=== PATIENT | female | born 1955 | race Caucasian/White ===

== ENCOUNTER → 2025-06-05 | Outpatient (CLI) | payer OTHER, SELFPAY ==
--- NOTE | 2025-06-05 10:40 | XR_ITS ---
Examination: Bilateral AP knees standing single view TECHNIQUE: AP bilateral knees standing single view Date and time: June 05, 2025 1056 hours INDICATIONS: Bilateral knee pain after walking 6 days ago FINDINGS: Prominent osteopenia Moderate to advanced narrowing medial lateral joint spaces bilaterally, most prominent medial joint space left knee No fracture IMPRESSION: Moderate to advanced narrowing medial lateral joint spaces bilaterally
[2025-06-05 12:20] LABS: Basophils # (Auto) 0.0 Thou/mm3 (0.0-0.2); Basophils % (Auto) 0 % (0-2.5); Eosinophils # (Auto) 0.0 Thou/mm3 (0.0-0.5); Eosinophils % (Auto) 0 % (0-10); Hematocrit 40.2 % (36.0-46.0); Hemoglobin 14.1 g/dL (12.0-16.0); Immature Granulocytes Auto 0.02 Thou/mm3 (0.00-0.00); Lymphocytes # (Auto) 1.5 Thou/mm3 (1.0-4.8); Lymphocytes % (Auto) 21 % (10-50); Mean Corpuscular HGB Conc 35.1 g/dl (31.0-37.0); Mean Corpuscular Hemoglobin 30.4 pg (25.0-35.0); Mean Corpuscular Volume 87 fL (80-100); Monocytes # (Auto) 0.7 Thou/mm3 (0.0-0.8); Monocytes % (Auto) 10 % (0-12); Neutrophils # (Auto) 4.8 Thou/mm3 (1.8-7.7); Neutrophils % (Auto) 68 % (37-80); Nucleated Red Blood Cell # 0.00 Thou/mm3 (0.00-0.00); Nucleated Red Blood Cell % 0 /100 WBC (0); Platelet Count 295 Thou/mm3 (140-440); RDW Standard Deviation 39.2 fL (36.4-46.3); Red Blood Count 4.64 Miln/mm3 (4.00-5.20); White Blood Count 7.0 Thou/mm3 (3.6-11.0)
[2025-06-05 12:30] LABS: Glucose Estimated Average 108 mg/dL (80-131); Hemoglobin A1C 5.4 % Hgb (4.8-6.0)
[2025-06-05 12:32] LABS: B-Type Natriuretic Peptide < 20 pg/mL (0-100)
[2025-06-05 12:36] LABS: Alanine Aminotransferase 17 U/L (10-49); Albumin, Serum 4.7 gm/dL (3.4-4.8); Albumin/Globulin Ratio 2.1 (1.2-2.2); Alkaline Phosphatase 73 U/L (46-116); Anion Gap 12 (7-16); Aspartate Amino Transferase 24 U/L (0-34); BUN/Creatinine Ratio 9 Ratio (12-20); Bilirubin,Total 0.6 mg/dL (0.3-1.2); Blood Urea Nitrogen 11 mg/dL (9-23); Calcium 10.5 mg/dL (8.3-10.6); Calcium (Corrected) 10.5 mg/dL (8.5-10.1); Carbon Dioxide 28.5 mMol/L (20.0-31.0); Chloride 90 mMol/L (98-107); Creatinine (Component) 1.2 mg/dL (0.6-1.3); Free T4 (Free Thyroxine) 1.52 ng/dL (0.89-1.76); Globulin 2.2 gm/dL (2.3-3.5); Glucose 109 mg/dL (74-106); Osmolality,Calculated 261 (275-295); Potassium 3.5 mMol/L (3.4-5.1); Sodium 130 mMol/L (136-145); Thyroid Stimulating Hormone 2.51 uIU/mL (0.55-4.78); Total Protein 6.9 gm/dL (5.7-8.2); Uric Acid 5.1 mg/dL (3.1-7.8); eGFR 49 See Note
[2025-06-05 12:38] LABS: Sed Rate (ESR) 36 mm/hr (0-30)
[2025-06-05 12:58] LABS: D-Dimer < 250 ng/mL (<600)
[2025-06-05 14:05] LABS: RA Screen Negative (Negative)
== END | disposition home or self-care (01) ==
LOC: CDIM 10:16 → COPL 11:03
PROVIDERS: PCP Nurse Practitioner Family; Referring Provider Nurse Practitioner Family; Visit Provider Radiology Diagnostic Radiology
DX: M25.862 Other specified joint disorders, left knee (principal); M25.861 Other specified joint disorders, right knee; R22.43 Localized swelling, mass and lump, lower limb, bilateral; R53.83 Other fatigue; M25.561 Pain in right knee; M25.562 Pain in left knee
CPT/HCPCS: 36415; 73565; 80053; 83036; 83880; 84439; 84443; 84550; 85025; 85379; 85652; 86430

== ENCOUNTER → 2025-06-22 | Outpatient (CLI) | payer OTHER, SELFPAY ==
--- NOTE | 2025-06-22 14:00 | XR_ITS ---
Examination: Retroperitoneal ultrasound, complete Technique: Multiple high resolution grayscale images of the retroperitoneum obtained, including kidneys and bladder. Exam date and time:June 22, 2025, 1400 hours INDICATIONS: Renal insufficiency on laboratory examination 06/05/2025, including acute renal failure FINDINGS: Right kidney 8.8 cm cortex 1.4 cm Left kidney 9.1 cm cortex 1.5 cm Moderate renal scar formation No hydronephrosis No bladder mass or bladder calculi Bladder prevoid volume 483.6 cc postvoid volume 34.4 cc IMPRESSION: Small kidneys with bilateral renal cortical thinning Moderate renal scar formation
== END | disposition home or self-care (01) ==
PROVIDERS: PCP Nurse Practitioner Family; Referring Provider Nurse Practitioner Family; Visit Provider Nurse Practitioner Family
DX: N28.89 Other specified disorders of kidney and ureter (principal)
CPT/HCPCS: 76770

== ENCOUNTER → 2025-07-15 | Outpatient (CLI) | payer OTHER, SELFPAY ==
[2025-07-15 11:05] LABS: Collection Type, Urine Clean Catch
[2025-07-15 11:41] LABS: Bilirubin,Urine Negative (Negative); Blood,Urine 2+ (Negative); Clarity,Urine Clear (Clear/Hazy); Color,Urine Lt-Yellow (Lt Yel-Yel); Glucose, Urine Negative (Negative); Ketones,Urine Negative (Negative); Leukocyte Esterase,Urine Negative (Negative); Nitrite,Urine Negative (Negative); PH,Urine 6.5 (5.0-7.0); Protein,Urine Negative (Neg - Trace); RBC,Urine 7 /hpf (0-3); Specific Gravity,Urine 1.007 (1.001-1.035); Squamous Epithelial Cell,Urine < 1 /hpf (0-5); Urobilinogen,Urine Negative mg/dL (0.0-1.0); WBC,Urine 1 /hpf (0-5)
[2025-07-15 11:45] LABS: Creatinine MALB Rnd Ur 58 mg/dL (30-125); Microalbumin Creat Ratio 7 mg/gCrea (<30); Microalbumin, Random Urine 4 mg/L (0-300)
[2025-07-15 11:47] LABS: Parathyroid Hormone Intact 42.0 pg/ml (18.5-88.0)
[2025-07-15 12:00] LABS: Albumin, Serum 4.7 gm/dL (3.4-4.8); Anion Gap 13 (7-16); BUN/Creatinine Ratio 10 Ratio (12-20); Blood Urea Nitrogen 10 mg/dL (9-23); Calcium 9.8 mg/dL (8.3-10.6); Calcium (Corrected) 9.8 mg/dL (8.5-10.1); Carbon Dioxide 27.3 mMol/L (20.0-31.0); Chloride 96 mMol/L (98-107); Creatinine (Component) 1.0 mg/dL (0.6-1.3); Glucose 117 mg/dL (74-106); Osmolality,Calculated 271 (275-295); Phosphorous 3.3 mg/dL (2.4-5.1); Potassium 3.2 mMol/L (3.4-5.1); Sodium 136 mMol/L (136-145); eGFR > 60 See Note
== END | disposition home or self-care (01) ==
LOC: COPL 10:38
PROVIDERS: PCP Nurse Practitioner Family; Referring Provider Internal Medicine; Visit Provider Internal Medicine
DX: N17.9 Acute kidney failure, unspecified (principal); I10 Essential (primary) hypertension
CPT/HCPCS: 36415; 80069; 81001; 82043; 82570; 83970

== ENCOUNTER → 2025-08-14 | Outpatient (CLI) | payer OTHER, SELFPAY ==
--- NOTE | 2025-08-14 10:15 | XR_ITS ---
Examination: Retroperitoneal ultrasound, complete Technique: Multiple high resolution grayscale images of the retroperitoneum obtained, including kidneys and bladder. Exam date and time: August 14, 2025, 0946 hours INDICATIONS: Diagnosis hematuria unspecified, prior renal sonogram 06/22/2025 small kidneys with bilateral renal cortical thinning FINDINGS: Right kidney 8.3 cm renal cortex 1.6 cm Left kidney 8.7 cm renal cortex 2.3 cm Moderate renal scar formation No hydronephrosis or renal calculi No bladder mass or bladder calculi bladder prevoid volume 347 cc IMPRESSION: Small kidneys with bilateral renal cortical thinning Moderate renal scar formation
== END | disposition home or self-care (01) ==
PROVIDERS: PCP Internal Medicine; Referring Provider Internal Medicine; Visit Provider Internal Medicine
DX: N27.1 Small kidney, bilateral (principal); N28.89 Other specified disorders of kidney and ureter
CPT/HCPCS: 76770